=== PATIENT | male | born 1965 | race American Indian/Alaskan Native ===

== ENCOUNTER 2019-12-27 18:04 | Emergency (ER) | payer OTHER ==
--- NOTE | 2019-12-27 19:14 | Event Note ---
ED Screening Note Date of service: 12/27/19 Time: 19:13 ED Screening Note: C/o elevated blood pressure of 230/130 x today off Bp meds for months +mild headache This initial assessment/diagnostic orders/clinical plan/treatment(s) is/are subject to change based on patients health status, clinical progression and re- assessment by fellow clinical providers in the ED. Further treatment and workup at subsequent clinical providers discretion. Patient/guardian urged not to elope from the ED as their condition may be serious if not clinically assessed and managed. Initial orders include: labs
[2019-12-27 19:37] LABS: Basophils % (Auto) 0.7 % (0.0-1.8); Eosinophils # (Auto) 0.2 K/mm3 (0.0-0.4); Eosinophils % (Auto) 3.4 % (0.0-4.3); Hematocrit 42.9 % (35.5-45.6); Hemoglobin 14.7 gm/dl (11.8-15.2); Lymphocytes # (Auto) 1.9 K/mm3 (1.2-5.4); Lymphocytes % (Auto) 36.9 % (13.4-35.0); Mean Corpuscular HGB Conc 34 % (32-34); Mean Corpuscular Volume 92 fl (84-94); Monocytes # (Auto) 0.5 K/mm3 (0.0-0.8); Monocytes % (Auto) 10.5 % (0.0-7.3); Platelet Count 199 K/mm3 (140-440); Red Blood Count 4.66 M/mm3 (3.65-5.03); Red Cell Distribution Width 12.6 % (13.2-15.2)
[2019-12-27 19:50] LABS: Albumin 4.3 g/dL (3.9-5); Calcium 9.2 mg/dL (8.4-10.2)
[2019-12-27] MEDS ORDERED: cloNIDine 0.1 MG TAB PO ONE (21:08)
--- NOTE | 2019-12-27 21:11 | Emergency Department Report ---
ED General Adult HPI - General Chief complaint: High BP Stated complaint: HYPERTENSION Time Seen by Provider: 12/27/19 19:10 Source: patient Mode of arrival: Ambulatory Limitations: No Limitations - History of Present Illness Initial comments: Patient is 54 years old male with history of hypertension, noncompliant with his medication. Patient presented to the ER complaining of high blood pressure. Patient stated that he checks his blood pressure and it was 230/120. Patient does not remember the name of the medicine that he is taking. Patient is complaining of mild headache. Patient denied any neck pain, weakness numbness or tingling sensation. No chest pain or shortness of breath. - Related Data Allergies Allergy/AdvReac Type Severity Reaction Status Date / Time No Known Allergies Allergy Unverified 12/27/19 19:10 ED Review of Systems ROS: Stated complaint: HYPERTENSION Other details as noted in HPI Comment: All other systems reviewed and negative Constitutional: denies: chills, fever Respiratory: denies: cough, shortness of breath, SOB with exertion Cardiovascular: denies: chest pain, palpitations Gastrointestinal: denies: abdominal pain, nausea, vomiting, diarrhea, constipation, hematemesis, melena, hematochezia Musculoskeletal: denies: back pain Neurological: headache. denies: weakness, numbness, paresthesias, confusion, abnormal gait ED Past Medical Hx - Past Medical History Previous Medical History?: Yes Hx Hypertension: Yes - Surgical History Past Surgical History?: Yes Additional Surgical History: Right knee ED Physical Exam - General Limitations: No Limitations General appearance: alert, in no apparent distress - Head Head exam: Present: atraumatic, normocephalic, normal inspection - Eye Eye exam: Present: normal appearance - ENT ENT exam: Present: normal exam, normal orophraynx, mucous membranes moist - Neck Neck exam: Present: normal inspection, full ROM. Absent: tenderness, meningismus, lymphadenopathy, thyromegaly - Respiratory Respiratory exam: Present: normal lung sounds bilaterally - Cardiovascular Cardiovascular Exam: Present: regular rate, normal rhythm, normal heart sounds - GI/Abdominal GI/Abdominal exam: Present: soft, normal bowel sounds. Absent: distended, tenderness, guarding, rebound, rigid, organomegaly, mass, bruit, pulsatile mass, hernia - Extremities Exam Extremities exam: Present: normal inspection, full ROM, normal capillary refill. Absent: pedal edema, calf tenderness - Back Exam Back exam: Present: normal inspection, full ROM. Absent: CVA tenderness (R), CVA tenderness (L) - Neurological Exam Neurological exam: Present: alert, oriented X3, CN II-XII intact, normal gait, reflexes normal. Absent: motor sensory deficit - Psychiatric Psychiatric exam: Present: normal mood - Skin Skin exam: Present: warm, intact, normal color ED Course Vital Signs 12/27/19 12/27/19 12/27/19 19:11 21:20 21:25 Temperature 98.4 F Pulse Rate 80 63 Respiratory 18 Rate Blood Pressure 203/122 198/116 Blood Pressure 187/131 [Right] O2 Sat by Pulse 95 Oximetry 12/27/19 21:30 Temperature Pulse Rate Respiratory Rate Blood Pressure 194/117 Blood Pressure [Right] O2 Sat by Pulse Oximetry ED Medical Decision Making - Lab Data Result diagrams: 12/27/19 19:18 12/27/19 19:18 - Medical Decision Making Patient is 54 years old male with history of hypertension, noncompliant with his medication. Patient presented to the ER complaining of high blood pressure. Patient stated that he checks his blood pressure and it was 230/120. Patient does not remember the name of the medicine that he is taking. Patient is complaining of mild headache. Patient denied any neck pain, weakness numbness or tingling sensation. No chest pain or shortness of breath. Labs reviewed and is unremarkable. Patient given clonidine 0.2 mg with significant improvement in his blood pressure. Patient counseled about blood pressure medication compliant. Patient given prescription for amlodipine 10 mg and advised to follow-up with his primary doctor in the next 2 to 3 days and to return to the ER if he develop any new symptoms. Critical care attestation.: If time is entered above; I have spent that time in minutes in the direct care of this critically ill patient, excluding procedure time. ED Disposition Clinical Impression: Malignant hypertension Disposition: DC-01 TO HOME OR SELFCARE Is pt being admited?: No Condition: Stable Instructions: Hypertension (ED) Referrals: [facility] [Provider Group] - 3-5 Days
[2019-12-27 23:33] VITALS: BP 137/95
== END 2019-12-27 23:20 | disposition home or self-care (01) ==
LOC: ED 18:04
DX: I10 Essential (primary) hypertension (principal)
CPT/HCPCS: 36415; 80053; 85025; 99283